=== PATIENT | female | born 1990 | race Two or more races ===

== ENCOUNTER 2024-10-16 23:45 | Inpatient (IN) | payer MEDICAID, SELFPAY ==
[2024-10-17] VITALS (80 sets, daily range): BP systolic 99–141; BP diastolic 53–92; PULSE 61–107; RESP 16–100; TEMP 36.6–37.1; O2SAT 86–100; BMI 36.8
[2024-10-17] MEDS: Ampicillin Inj 2,000 MG in SODIUM CHLORIDE 0.9% (P) 100 ML 200 MG IV (01:05)
[2024-10-17] MEDS: RINGERS LACTATED 1000 ML 1,000 ML 100 ML IV (01:06)
[2024-10-17 01:30] LABS: Basophils % (Auto) 0 % (0-2.5); Eosinophils % (Auto) 0 % (0-10); Hematocrit 36.9 % (36.0-46.0); Immature Granulocytes % (Auto) 1 % (0-0); Immature Granulocytes Auto 0.13 Thou/mm3 (0.00-0.00); Lymphocytes # (Auto) 1.7 Thou/mm3 (1.0-4.8); Lymphocytes % (Auto) 15 % (10-50); Mean Corpuscular HGB Conc 35.2 g/dl (31.0-37.0); Mean Corpuscular Hemoglobin 31.3 pg (25.0-35.0); Mean Corpuscular Volume 89 fL (80-100); Monocytes # (Auto) 0.9 Thou/mm3 (0.0-0.8); Monocytes % (Auto) 7 % (0-12); Neutrophils # (Auto) 9.1 Thou/mm3 (1.8-7.7); Neutrophils % (Auto) 77 % (37-80); Nucleated Red Blood Cell % 0 /100 WBC (0); Platelet Count 228 Thou/mm3 (140-440); RDW Standard Deviation 42.7 fL (36.4-46.3); Red Blood Count 4.15 Miln/mm3 (4.00-5.20); White Blood Count 11.9 Thou/mm3 (3.6-11.0)
[2024-10-17 02:39] LABS: Syphilis Nonreactive (Nonreactive)
[2024-10-17] MEDS: Ampicillin Inj 1,000 MG in SODIUM CHLORIDE 0.9% (P) 50 ML 50 MG IV (05:00)
[2024-10-17] MEDS: OXYTOCIN INJ 10 UNIT/ML VIAL IM (05:56)
[2024-10-17] MEDS: OXYTOCIN in NS 20 units 20 UNIT/1,000 ML BAG 125 UNIT IV (06:00)
[2024-10-17] MEDS: MISOPROSTOL 200 mCg TABLET 800 MCG PR (06:03)
[2024-10-17] MEDS: IBUPROFEN TAB 400 MG TABLET 800 MG PO ×2 (06:23→15:56)
[2024-10-17] MEDS: TRANEXAMIC ACID 1,000 MG IVPB 1,000 MG/100 ML BAG 200 MG IV ×2 (06:35→07:40)
--- NOTE | 2024-10-17 07:10 | ESHP_ITS ---
Documentation for date of: 10/17/24 OB Labor/Induct. HPI History of Present Illness Chief complaint: labor : 4 Para: 3 Term pregnancies: 3 pregnancies: 0 Living children: 3 History of Abortions: Spontaneous and Elective: 0 History of Vaginal deliveries: 3 History of sections: No History of : No Date of last menstrual period: 01/22/24 JANE: 11/28/24 Gestational Age (weeks): 38 Gestational Age (days): 2 Gestational age based on last menstrual period: 38 History of present illness: 34-year-old 4 para 3 admit to labor and delivery with complaints of contractions since 5 PM. Patient is been followed at [facility] care. First visit 9 weeks. Last period January 22, 2024. Estimated due date October 28, 2024. Denies social habits. Denies surgery. Denies chronic illness. Patient is O+, antibody screen negative, RPR nonreactive, rubella immune, hepatitis B negative, hep C negative, HIV negative, GC and Chlamydia were negative. Normal 1 hour. Normal AFP and NIPT. Carrier screens were negative. Patient had normal anatomy screening scans with good growth. History of Present Dating criteria: LMP confirmed by 1st trimester US Adequate Care: Yes Ultrasounds: normal 1st trimester US and normal mid trimester US Obstetrical complications: none Medical complications: none Labs Labs: Positive: Group Beta Strep and Negative: Hepatitis B, HIV, Chlamydia and Gonorrhea Past Medical History Surgical History SURGICAL: Negative Section Meds Home Medications and Allergies Home Medications ?Medication ?Instructions ?Recorded ?Confirmed ?Type prenat.vits,barak,icl-pyli-amicy 1 tab PO QDAY 01/11/21 10/17/24 History Allergies Allergy/AdvReac Type Severity Reaction Status Date / Time No Known Allergies Allergy Verified 10/17/24 00:23 OB Exam Physical Exam Vital signs: Temp Pulse Resp BP Pulse Ox O2 Del Method 98.1 F 65 17 130/58 L 97 Room Air 10/17/24 05:57 10/17/24 06:57 10/17/24 05:29 10/17/24 06:57 10/17/24 05:51 10/17/24 00:00 Narrative: Normal heart rate. Lungs are clear no wheezes. Gravid abdomen. Estimated weight 6 pounds 14 ounces. Vaginal exam on admission was 80%, 4, -2. Vertex. Bag water intact. heart rate is category 1 with accelerations and moderate variability. Detailed Labor and Delivery Exam Dilation (cm): 4 Effacement (%): 80 Cervix position: mid station: -2 Consistency: soft Presentation: Vertex Cervical ripeness score: 8 Membranes: intact Baseline heart rate: 125 monitor accelerations: 15x15 monitor decelerations: None senior care variability: Moderate (11-25) Contraction frequency (min): 2-4 Contraction duration (sec): 30 Tachysystole: No Contraction intensity: Moderate OB Results Labs 10/17/24 00:42 Labs: Short CBC 10/17/24 Range/Units 00:42 WBC 11.9 H (3.6-11.0) Thou/mm3 Hgb 13.0 (12.0-16.0) g/dL Hct 36.9 (36.0-46.0) % Plt Count 228 (140-440) Thou/mm3 Impressions Impression: labor OB Assessment & Plan Assessment and Plan (1) Normal labor and delivery: Status: Acute Additional Plan Induction method: none Plan: anticipate NVD, GBS prophylaxis tx and consult MD patterson
--- NOTE | 2024-10-17 07:27 | PD.LDDELS ---
Data (Ricardo) Data Hx Section: No : 4 Para: 3 Term: 3 : 0 : 0 Delivery Data (Ricardo) Labor Data Stimulated/Augmented: No Induction: No ROM Date: 10/17/24 ROM Time: 05:36 Rupture Type: SROM Amniotic Fluid: Clear Delivery Data EDC: 10/28/24 EDC calculated by:: LMP/early US confirmation Labor Onset Stage 1 Date: 10/16/24 Labor Onset Stage 1 Time: 17:00 Labor Onset Stage 2 Date: 10/17/24 Labor Onset Stage 2 Time: 05:40 Delivery Date: 10/17/24 Delivery Time: 05:50 Gestational age (weeks): 38 Gestational age (days): 2 Placenta Delivery Date: 10/17/24 Placenta Delivery Time: 05:58 Delivered by: Elma Borja Delivery nurse: Angelito Moore Other staff at delivery: Nursery Nurse Other staff at delivery: Xiomara Sapp Delivery Method Delivery: Vaginal Delivery Type: Spontaneous Presentation: Vertex Position: OA Anesthesia Type Primary Anesthesia: Epidural Delivery Room Medications Intrapartum Medications: Antibiotics Other Intrapartum Medications: No Post Delivery Medications: Tocolytics and Cytotec Post Delivery Medications N/A: No Placenta Placenta Delivery: Spontaneous (inspected, complete, membranes intact) Placenta Cultures Obtained: No Placenta Sent for Examination: No Cord Sample: Cord Blood Obtained Episiotomy Episiotomy: None EBL Estimated blood loss (ml): 350 Umbilical Cord Placenta/Cord Complication: Other Umbilical Vessels: 3 Nuchal Cord: x1 Body Cord: None [place] Data (Ricardo) Data Gender: Female Identification Band Number: [id number] Infant Weight Grams: 3030 1 Minute Total: 9 5 Minute Total: 9
[2024-10-17 15:25] LABS: Basophils # (Auto) 0.1 Thou/mm3 (0.0-0.2); Basophils % (Auto) 0 % (0-2.5); Eosinophils % (Auto) 0 % (0-10); Hematocrit 36.2 % (36.0-46.0); Hemoglobin 12.5 g/dL (12.0-16.0); Immature Granulocytes % (Auto) 1 % (0-0); Lymphocytes # (Auto) 1.3 Thou/mm3 (1.0-4.8); Lymphocytes % (Auto) 10 % (10-50); Mean Corpuscular HGB Conc 34.5 g/dl (31.0-37.0); Mean Corpuscular Hemoglobin 30.7 pg (25.0-35.0); Mean Corpuscular Volume 89 fL (80-100); Monocytes # (Auto) 0.9 Thou/mm3 (0.0-0.8); Monocytes % (Auto) 7 % (0-12); Neutrophils # (Auto) 10.2 Thou/mm3 (1.8-7.7); Neutrophils % (Auto) 81 % (37-80); Nucleated Red Blood Cell % 0 /100 WBC (0); Platelet Count 203 Thou/mm3 (140-440); RDW Standard Deviation 42.9 fL (36.4-46.3); Red Blood Count 4.07 Miln/mm3 (4.00-5.20); White Blood Count 12.6 Thou/mm3 (3.6-11.0)
[2024-10-17] MEDS: DOCUSATE SOD 100 MG CAPSULE PO (20:19)
[2024-10-18 00:08] VITALS: BP 98/55; PULSE 65; RESP 17; TEMP 36.6; O2SAT 96
[2024-10-18 04:25] VITALS: BP 108/64; PULSE 70; RESP 19; TEMP 36.7; O2SAT 96
--- NOTE | 2024-10-18 07:52 | PD.LDPPPRG ---
Subjective Subjective Interval history: No complaints of pain. No dizziness. Bonding and breast-feeding Exam Vital Signs Temp Pulse Resp BP Pulse Ox O2 Del Method 98.1 F 70 19 108/64 96 Room Air 10/18/24 04:25 10/18/24 04:25 10/18/24 04:25 10/18/24 04:25 10/18/24 04:25 10/18/24 04:25 Narrative Exam Vital signs stable afebrile. Breasts are soft. Fundus firm below the umbilicus. Perineum intact no swelling. Small lochia. Uterus well involuted. Negative Homans' sign. 2+ DTR Objective Labs 10/17/24 15:00 Labs: Laboratory Results - last 24 hr 10/17/24 15:00 WBC 12.6 H RBC 4.07 Hgb 12.5 Hct 36.2 MCV 89 MCH 30.7 MCHC 34.5 RDW Std Deviation 42.9 Plt Count 203 Neut % (Auto) 81 H Lymph % (Auto) 10 [place] % (Auto) 7 Eos % (Auto) 0 Baso % (Auto) 0 Neut # (Auto) 10.2 H Lymph # (Auto) 1.3 [place] # (Auto) 0.9 H Eos # (Auto) 0.0 Baso # (Auto) 0.1 Immature Gran # (Auto) 0.10 H Absolute Nucleated RBC 0.00 Immature Gran % 1 H Nucleated RBC % 0 Assessment & Plan Problem List (1) Normal labor and delivery: Status: Acute Assessment Comment Assessment comment: 24-hour Plan Comment Plan Comment: Discharge home with baby. Continue vitamins and iron. Tylenol ibuprofen for pain. Danger signs. Return in 3 weeks visit. Discussed danger signs and symptoms and signs of infection. ER precautions with parameters. Time Spent With Patient Time: Total time spent is greater than 50% in coordination of care (as documented) at patient's floor/unit and/or counseling patient:
--- NOTE | 2024-10-18 07:55 | PD.LDDS ---
DS: Providers Provider Date of admission: 10/17/24 00:30 Primary care physician: Physician No Primary/Family Admitting Provider: Fabiola Mandujano MD Attending Provider on Admission: Elma Borja CNM Consults: 10/17/24 07:36 Referral Routine Comment: Attending Provider on DC: Elma Borja CNM Discharging Provider: Elma Borja CNM DS: Diagnosis Problem List Completed Was Problem List Reviewed/Reconciled?: Yes Summary/Hosp Course Brief History: 34-year-old 4 para 3 admit to labor and delivery with complaints of contractions since 5 PM. Patient is been followed at [facility] care. First visit 9 weeks. Last period January 22, 2024. Estimated due date October 28, 2024. Denies social habits. Denies surgery. Denies chronic illness. Patient is O+, antibody screen negative, RPR nonreactive, rubella immune, hepatitis B negative, hep C negative, HIV negative, GC and Chlamydia were negative. Normal 1 hour. Normal AFP and NIPT. Carrier screens were negative. Patient had normal anatomy screening scans with good growth. Peripartum Data Delivery Method: Normal Vaginal Delivery Episiotomy Description: None Laceration Description: no Time Spent with Patient Time attestation: Total time spent providing and/or coordinating discharge services: Exam Vital Signs Temp Pulse Resp BP Pulse Ox O2 Del Method 98.1 F 70 19 108/64 96 Room Air 10/18/24 04:25 10/18/24 04:25 10/18/24 04:25 10/18/24 04:25 10/18/24 04:25 10/18/24 04:25 Discharge Plan Plan Patient Disposition: HOME (Self Care) Patient condition on transfer: Stable Prescriptions/Referrals Prescriptions/Med Rec: No Action Vitamin Tablet 1 tab PO QDAY Referrals: No Primary/Family,Physician [Primary Care Provider] - Patient/Caregiver Discharge Instructions Meds to Beds: No Discharge Activity: resume usual activities Education Materials: After a Vaginal , Understanding Blues, Nutrition While Print Language: Pashto Activity Restrictions/Additional Instructions: Follow up with OB in 3 weeks for check up discharge home with baby. Continue vitamins and iron. Tylenol ibuprofen for pain. Danger signs. Return in 3 weeks visit. Discussed ER precautions and parameters. Discussed signs and symptoms of infection. Stand Alone Forms: [facility] Award Info., Patient Portal Info Letter Discharge Order Discharge Orders: Discharge (Routine); Ordered 10/18/24 Ordered By: Elma Borja Planned Discharge Date 10/18/24
[2024-10-18 08:25] VITALS: BP 105/66; PULSE 69; RESP 17; TEMP 36.9; O2SAT 98
[2024-10-18] MEDS: IBUPROFEN TAB 400 MG TABLET 800 MG PO (08:33)
[2024-10-18] MEDS: DOCUSATE SOD 100 MG CAPSULE PO (08:34)
== END 2024-10-18 12:44 | disposition home or self-care (01) | DRG 560 ==
LOC: S4SX 10-17 01:59 → S4NX 10-17 09:57
PROVIDERS: Advanced Practice Midwife; Admitting Provider Obstetrics & Gynecology; Visit Provider Obstetrics & Gynecology
DX: O69.81X0 Labor and delivery complicated by cord around neck, without compression, not applicable or unspecified (principal); Z37.0 Single live birth; Z3A.38 38 weeks gestation of pregnancy
CPT/HCPCS: 36415; 59025; 59409; 59899; 85025; 86780; 86850; 86900; 86901; 94762; J0290; J2590; J2795; J3010; J3490; J7050; J7120; S0191; A9270